=== PATIENT | male | born 1950 | race American Indian/Alaskan Native ===

== ENCOUNTER 2021-07-01 08:40 | Inpatient (IN) | payer BC, MEDICARE ==
[2021-07-01 09:56] LABS: Basophils % (Auto) 0.7 % (0.0-1.8); Eosinophils % (Auto) 0.1 % (0.0-4.3); Hematocrit 44.2 % (35.5-45.6); Hemoglobin 14.9 gm/dl (11.8-15.2); Lymphocytes # (Auto) 1.4 K/mm3 (1.2-5.4); Lymphocytes % (Auto) 21.3 % (13.4-35.0); Mean Corpuscular HGB Conc 34 % (32-34); Mean Corpuscular Volume 100 fl (84-94); Monocytes # (Auto) 0.6 K/mm3 (0.0-0.8); Monocytes % (Auto) 9.7 % (0.0-7.3); Platelet Count 113 K/mm3 (140-440); Red Blood Count 4.43 M/mm3 (3.65-5.03); Red Cell Distribution Width 14.9 % (13.2-15.2)
[2021-07-01 10:02] LABS: Blood Urea Nitrogen 3 mg/dL (9-20); Calcium 9.3 mg/dL (8.4-10.2); Hemolysis Index 14
[2021-07-01 10:03] LABS: BUN/Creatinine Ratio 4
[2021-07-01 10:17] LABS: INR 1.15 (0.87-1.13)
--- NOTE | 2021-07-01 12:06 | Emergency Department Report ---
ED General Adult HPI - General Chief complaint: Sore Throat Stated complaint: THROAT CLOSED CAN'T SWOLLOW Time Seen by Provider: 07/01/21 09:05 Source: patient Mode of arrival: Ambulatory Limitations: No Limitations - History of Present Illness Initial comments: 70-year-old male with a past medical history of recurrent esophageal dilatation procedures, hypertension, and prostate cancer diagnosed 2 years ago (untreated) presents to the hospital complaining of inability to swallow since 3 PM last night. Patient has a history of same in the past requiring esophageal dilatations. Last dilation was approximately 2 years ago. Patient states he is unable to swallow liquids at this time without them getting stuck in his chest and coming up. Patient has been noncompliant with his blood pressure medications x2 weeks because he ran out. He has an appointment scheduled for new PMD coming up. Patient denies abdominal pain. Severity scale (0 -10): 0 - Related Data Allergies Allergy/AdvReac Type Severity Reaction Status Date / Time No Known Allergies Allergy Unverified 07/01/21 08:43 ED Review of Systems ROS: Stated complaint: THROAT CLOSED CAN'T SWOLLOW Other details as noted in HPI Comment: All other systems reviewed and negative ED Past Medical Hx - Past Medical History Hx Hypertension: Yes Additional medical history: POSTRATE CANCER - Surgical History Hx Pacemaker: Yes - Social History Smoking Status: Never Smoker ED Physical Exam - General Limitations: No Limitations - Other Other exam information: General: No acute distress Head: Atraumatic Eyes: normal appearance ENT: Moist mucous membranes Neck: Normal appearance, no midline tenderness Chest: Clear to auscultation bilaterally CV: Regular rate and rhythm Abdomen: Soft, normal bowel sounds, nontender, nondistended, no rebound or guarding Back: Normal inspection Extremity: Normal inspection, full range of motion Neuro: Alert O x 3, no facial asymmetry, speech clear, no gross motor sensory deficit Psych: Appropriate behavior Skin: No rash ED Course Vital Signs 07/01/21 07/01/21 07/01/21 08:50 08:57 08:58 Temperature 98.5 F Pulse Rate 108 H Respiratory 20 Rate Blood Pressure Blood Pressure 161/107 [Right] O2 Sat by Pulse 97 98 98 Oximetry 07/01/21 07/01/21 07/01/21 09:00 09:15 09:31 Temperature Pulse Rate 104 H 105 H 101 H Respiratory 26 H 25 H 23 Rate Blood Pressure 201/114 192/111 192/111 Blood Pressure [Right] O2 Sat by Pulse 97 98 99 Oximetry 07/01/21 07/01/21 07/01/21 09:45 10:00 10:15 Temperature Pulse Rate 104 H 106 H 85 Respiratory 24 25 H 23 Rate Blood Pressure 192/111 176/96 Blood Pressure [Right] O2 Sat by Pulse 99 99 100 Oximetry 07/01/21 07/01/21 07/01/21 10:31 10:45 11:01 Temperature Pulse Rate Respiratory Rate Blood Pressure 201/111 174/111 184/100 Blood Pressure [Right] O2 Sat by Pulse 98 96 98 Oximetry 07/01/21 07/01/21 07/01/21 12:06 12:15 12:31 Temperature Pulse Rate 79 84 Respiratory 25 H 22 Rate Blood Pressure 219/139 182/95 184/99 Blood Pressure [Right] O2 Sat by Pulse 100 95 96 Oximetry - Consultations Consultation #1: 07/01/21 12:38 case d/w Dr Kilpatrick, will consult with anticipated endoscopy. ED Medical Decision Making - Lab Data Result diagrams: 07/01/21 09:29 07/01/21 09:29 Lab Results 07/01/21 07/01/21 07/01/21 Range/Units 09:29 09:29 09:29 WBC 6.7 (4.5-11.0) K/mm3 RBC 4.43 (3.65-5.03) M/mm3 Hgb 14.9 (11.8-15.2) gm/dl Hct 44.2 (35.5-45.6) % MCV 100 H (84-94) fl MCH 34 H (28-32) pg MCHC 34 (32-34) % RDW 14.9 (13.2-15.2) % Plt Count 113 L (140-440) K/mm3 Lymph % (Auto) 21.3 (13.4-35.0) % [place] % (Auto) 9.7 H (0.0-7.3) % Eos % (Auto) 0.1 (0.0-4.3) % Baso % (Auto) 0.7 (0.0-1.8) % Lymph # (Auto) 1.4 (1.2-5.4) K/mm3 [place] # (Auto) 0.6 (0.0-0.8) K/mm3 Eos # (Auto) 0.0 (0.0-0.4) K/mm3 Baso # (Auto) 0.0 (0.0-0.1) K/mm3 Seg Neutrophils % 68.2 (40.0-70.0) % Seg Neutrophils # 4.6 (1.8-7.7) K/mm3 PT 15.9 H (12.2-14.9) Sec. INR 1.15 H (0.87-1.13) APTT 34.0 (24.2-36.6) Sec. Sodium 136 L (137-145) mmol/L Potassium 3.7 (3.6-5.0) mmol/L Chloride 94.8 L (98-107) mmol/L Carbon Dioxide 24 (22-30) mmol/L Anion Gap 21 mmol/L BUN 3 L (9-20) mg/dL Creatinine 0.7 L (0.8-1.3) mg/dL Estimated GFR > 60 ml/min BUN/Creatinine Ratio 4 % Glucose 148 H (75-100) mg/dL Calcium 9.3 (8.4-10.2) mg/dL - Medical Decision Making 70-year-old male presents to the hospital hypertension and complaints of inability to swallow liquids. Patient is able to tolerate his secretions however, he was provided a trial of ordered applesauce and complain of a sensation that it was stuck in his chest and subsequently vomited it up. Patient received IV labetalol for asymptomatic hypertension. Case discussed with GI on-call Dr. Kilpatrick with plan for possible endoscopy on Saturday Critical Care Time: No Critical care attestation.: If time is entered above; I have spent that time in minutes in the direct care of this critically ill patient, excluding procedure time. ED Disposition Clinical Impression: Difficulty swallowing liquids, Uncontrolled hypertension, Noncompliance with medication regimen Disposition: ADMITTED INPATIENT Is pt being admited?: Yes Condition: Stable Instructions: Hypertension (ED) Time of Disposition: 12:39 (DR Huddleston/hospitalist)
--- NOTE | 2021-07-01 14:01 | Gastroenterology Consultation ---
History of Present Illness - Reason for Consult Consult date: 07/01/21 dysphagia Requesting physician: JUAN SERRANO - History of Present Illness The patient is a 70 yo aam who presents with dysphagia since yesterday. pt with h/o chronic gerd, not on ppi recently, h/o dysphagia and esophageal strictures in the past requiring dilatation (last 2-3 years ago per pt). he was doing well until dysphagia sx's yesterday afternoon. he is able to keep his secretions down and tolerated sip of water at time of exam. however was unable to keep down soft substance in ER this morning. he feels liquids are getting stuck in chest. denies abd pain. of note, very hypertensive in ER, has not been taking BP meds as he ran out of meds 2 weeks ago. Past History Past Medical History: hypertension, other (prostate cancer) Social history: no significant social history Family history: no significant family history Medications and Allergies Allergies Allergy/AdvReac Type Severity Reaction Status Date / Time No Known Allergies Allergy Unverified 07/01/21 08:43 Active Meds: Reviewed/updated patient's home and current medications Review of Systems - Review of Systems All systems: negative (per HPI) Exam - Constitutional Vital Signs: Temp Pulse Resp BP Pulse Ox 98.5 F 84 22 184/99 96 07/01/21 08:50 07/01/21 12:31 07/01/21 12:31 07/01/21 12:31 07/01/21 12:31 General appearance: no acute distress - EENT Eyes: PERRL, EOM intact ENT: hearing intact - Neck Neck: supple - Respiratory Respiratory effort: normal Respiratory: bilateral: CTA - Cardiovascular Rhythm: regular Heart Sounds: Present: S1 & S2 - Gastrointestinal General gastrointestinal: Present: soft, non-tender, non-distended - Neurologic Neurological: alert and oriented x3 - Psychiatric Psychiatric: appropriate mood/affect - Labs CBC & Chem 7: 07/01/21 09:29 07/01/21 09:29 Lab Results: Laboratory Results - last 24 hr 07/01/21 07/01/21 07/01/21 09:29 09:29 09:29 WBC 6.7 RBC 4.43 Hgb 14.9 Hct 44.2 MCV 100 H MCH 34 H MCHC 34 RDW 14.9 Plt Count 113 L Lymph % (Auto) 21.3 [place] % (Auto) 9.7 H Eos % (Auto) 0.1 Baso % (Auto) 0.7 Lymph # (Auto) 1.4 [place] # (Auto) 0.6 Eos # (Auto) 0.0 Baso # (Auto) 0.0 Seg Neutrophils % 68.2 Seg Neutrophils # 4.6 PT 15.9 H INR 1.15 H APTT 34.0 Sodium 136 L Potassium 3.7 Chloride 94.8 L Carbon Dioxide 24 Anion Gap 21 BUN 3 L Creatinine 0.7 L Estimated GFR > 60 BUN/Creatinine Ratio 4 Glucose 148 H Calcium 9.3 Assessment and Plan 1. Dysphagia - history of esophageal stricture in the past. able to keep secretions and clears down at bedside so low suspicion for complete obstruction, but will plan egd tomorrow. keep NPO except for sips of clears.
--- NOTE | 2021-07-01 14:32 | History and Physical Report ---
History of Present Illness Chief complaint: I cannot swallow and it feels like something is stuck in my chest History of present illness: 70 YO Male with HTN, CaP, GERD, Dysphagia S/P Esophageal Dilitation, medication noncompliance presents to ED for evaluation. Patient reports I cannot swallow and I feel like something is stuck in my chest". Patient states that he had experienced inability to swallow solids which has gotten progressively worse and the patient states that he is now unable to swallow liquids at this time. Patient transported to [facility] via private vehicle for further care and evaluation of the aforementioned symptoms. Patient seen and evaluated in the emergency department. All lab and imaging studies reviewed. Patient found to have dysphagia and inability to tolerate oral intake, accelerated malngnant hypertension due to inability to take oral medication. Patient admitted to medical floor and initiated on IV fluid resuscitation therapy, and IV antihypertensive therapy. Patient denies fever, chills, chest pain, palpitation, productive cough, skin rash, recent contact, known exposure to COVID-19. GI team consulted in ED. No prior admission for review. No medication listed at time of admission for reconciliation. Advanced care planning conducted in ED. Past History Past Medical History: hypertension, other (prostate cancer) Past Surgical History: Other (Esophageal dilatation) Social history: . denies: smoking, alcohol abuse Family history: no significant family history Medications and Allergies Allergies Allergy/AdvReac Type Severity Reaction Status Date / Time No Known Allergies Allergy Unverified 07/01/21 08:43 Review of Systems Constitutional: weight loss, poor appetite, no weight gain, no fever Ears, nose, mouth and throat: no ear pain, no tinnitis, no nose pain, no nasal congestion Cardiovascular: no chest pain, no palpitations, no rapid/irregular heart beat, no edema Respiratory: no cough, no hemoptysis, no dyspnea on exertion Gastrointestinal: no abdominal pain, no nausea, no diarrhea, no constipation, no change in bowel habits Genitourinary Male: no hematuria, no flank pain, no discharge, no urinary frequency, no urinary hesitancy Rectal: no pain, no incontinence, no bleeding Musculoskeletal: no neck stiffness, no neck pain, no shooting arm pain, no low back pain Integumentary: no rash, no pruritis, no wounds Neurological: no head injury, no parathesias, no tingling, no syncope, no tremors Psychiatric: no anxiety, no change in sleep habits, no insomnia, no change in appetite, no suicidal ideation Endocrine: no cold intolerance, no polyphagia, no polydipsia, no nocturia Hematologic/Lymphatic: no easy bruising, no easy bleeding Exam - Constitutional Vitals: Temp Pulse Resp BP Pulse Ox 98.5 F 90 21 184/102 97 07/01/21 08:50 07/01/21 14:15 07/01/21 14:15 07/01/21 14:15 07/01/21 14:15 General appearance: Present: mild distress - EENT Eyes: Present: PERRL ENT: hearing intact, clear oral mucosa - Neck Neck: Present: supple, normal ROM - Respiratory Respiratory effort: normal Respiratory: bilateral: CTA - Cardiovascular Heart Sounds: Present: S1 & S2. Absent: rub, click - Extremities Extremities: pulses symmetrical, No edema Peripheral Pulses: within normal limits - Abdominal General gastrointestinal: Present: soft, non-tender, non-distended, normal bowel sounds Male genitourinary: Present: normal - Integumentary Integumentary: Present: clear, warm, dry - Musculoskeletal Musculoskeletal: gait normal, strength equal bilaterally - Psychiatric Psychiatric: appropriate mood/affect, intact judgment & insight - Neurologic Neurologic: CNII-XII intact, moves all extremities Results - Labs CBC & Chem 7: 07/01/21 09:29 07/01/21 09:29 Labs: Abnormal lab results 07/01/21 07/01/21 07/01/21 Range/Units 09:29 09:29 09:29 MCV 100 H (84-94) fl MCH 34 H (28-32) pg Plt Count 113 L (140-440) K/mm3 [place] % (Auto) 9.7 H (0.0-7.3) % PT 15.9 H (12.2-14.9) Sec. INR 1.15 H (0.87-1.13) Sodium 136 L (137-145) mmol/L Chloride 94.8 L (98-107) mmol/L BUN 3 L (9-20) mg/dL Creatinine 0.7 L (0.8-1.3) mg/dL Glucose 148 H (75-100) mg/dL Assessment and Plan - Patient Problems (1) Dysphagia, oropharyngeal phase Current Visit: Yes Status: Acute Plan to address problem: GI team consulted. IV fluid resuscitation therapy, bowel rest. Further care and evaluation as per GI team. (2) Accelerated hypertension Current Visit: Yes Status: Acute Plan to address problem: Monitor blood pressure every shift, continue medical management, hydralazine 10 mg IV every 6 hours as needed for systolic blood pressure greater than or equal 155 mmHg. (3) Prostate cancer Current Visit: Yes Status: Acute Plan to address problem: Supportive care, outpatient urology follow-up. (4) GERD (gastroesophageal reflux disease) Current Visit: Yes Status: Acute Qualifiers: Esophagitis presence: esophagitis presence not specified Qualified Code(s): K21.9 - Gastro-esophageal reflux disease without esophagitis Plan to address problem: PPI therapy, GI team consulted. Supportive care. (5) DVT prophylaxis Current Visit: Yes Status: Acute Plan to address problem: SCD to bilateral lower extremities while in bed (6) Advance care planning Current Visit: Yes Status: Acute Plan to address problem: Disease education conducted, care plan discussed, diagnoses discussed, prognosis discussed, patient is full code. Patient acknowledges understanding and agreement with care plan, +30 minutes.
[2021-07-01] MEDS ORDERED: HYDROmorphone 1 MG/1 ML INJ IV PRN (14:34)
[2021-07-01] MEDS ORDERED: ONDANSETRON 4 MG/2 ML INJ IV PRN (14:34)
[2021-07-01] MEDS ORDERED: ACETAMINOPHEN 325 MG TAB PO PRN (14:34)
[2021-07-01] MEDS ORDERED: ALBUTEROL 2.5 MG/3 ML NEBU IH PRN (14:34)
[2021-07-01] MEDS ORDERED: hydrALAZINE 20 MG/1 ML INJ IV ONE (19:45)
[2021-07-01] MEDS ORDERED: PNEUMOCOCCAL 23 Valent 0.5 ML VIAL IM ONE (21:21)
[2021-07-02 05:56] LABS: Basophils % (Auto) 0.6 % (0.0-1.8); Eosinophils # (Auto) 0.1 K/mm3 (0.0-0.4); Eosinophils % (Auto) 1.8 % (0.0-4.3); Hematocrit 40.8 % (35.5-45.6); Hemoglobin 13.8 gm/dl (11.8-15.2); Lymphocytes # (Auto) 1.9 K/mm3 (1.2-5.4); Lymphocytes % (Auto) 27.8 % (13.4-35.0); Mean Corpuscular HGB Conc 34 % (32-34); Mean Corpuscular Volume 101 fl (84-94); Red Blood Count 4.04 M/mm3 (3.65-5.03); Red Cell Distribution Width 14.9 % (13.2-15.2)
[2021-07-02 05:59] LABS: Platelet Count 81 K/mm3 (140-440)
--- NOTE | 2021-07-02 09:33 | Anesthesia Consultation ---
Anesthesia Consult and Med Hx Date of service: 07/02/21 - Airway Anesthetic Teeth Evaluation: Poor (evidence of significant tooth decay w/ multiple missing teeth; denies loose teeth), Caps (#8) ROM Head & Neck: Adequate Mental/Hyoid Distance: Adequate Mallampati Class: Class III Intubation Access Assessment: Possibly Difficult - Pre-Operative Health Status ASA Pre-Surgery Classification: ASA3 Proposed Anesthetic Plan: MAC - Pulmonary Hx Smoking: No Hx Asthma: Yes (albuterol prn; last use 2 wks ago) Hx Respiratory Symptoms: No - Cardiovascular System Hx Hypertension: Yes Hx Heart Attack/AMI: No Hx Percutaneous Transluminal Coronary Angioplasty (PTCA): No Hx Pacemaker: Yes (placed <1yr ago, indication unclear) Hx Internal Defibrillator: No - Central Nervous System CVA: No - Gastrointestinal Hx Gastroesophageal Reflux Disease: Yes (dysphagia w/ history esophageal dilatations) - Endocrine Hx Renal Disease: No Hx Liver Disease: No Hx Insulin Dependent Diabetes: No Hx Non-Insulin Dependent Diabetes: No Hx Thyroid Disease: No - Hematic Hx Anemia: No (thrombocytopenia) - Other Systems Hx Cancer: Yes (hx prostate ca) Hx Obesity: No - Additional Comments Anesthesia Medical History Comments: No hx anesthetic complications.
--- NOTE | 2021-07-02 09:34 | Anesthesia Day of Surgery ---
Anesthesia Day of Surgery - Day of Surgery Patient Examined: Yes Patient H&P Reviewed: Yes Patient is NPO: Yes
[2021-07-02] MEDS ORDERED: SODIUM CHLORIDE 0.9% 1000 ML 1,000 ML ONE (09:46)
[2021-07-02] MEDS ORDERED: propofoL 200 MG/20 ML VIAL IV ONE (09:48)
--- NOTE | 2021-07-02 10:10 | Operative Report ---
Operative Report Operative Report: Esophagogastroduodenoscopy Procedure Note Date of procedure: 07/02/2021 Endoscopist: Ry Kilpatrick Pre-op diagnosis/indication: Dysphagia Post-op diagnosis: Severe stricture in the distal esophagus MEDICATIONS: MAC COMPLICATIONS: No immediate complications ESTIMATED BLOOD LOSS: None DESCRIPTION OF PROCEDURE: After consent was obtained, the patient was placed in the left lateral decubitis position. The olympus endoscope was inserted into the patient's mouth under direct vision and advanced to the 2nd portion of the duodenum without difficulty. The patient tolerated the procedure well. The views of the mucosa were fair. The patient's vital signs were monitored continuously throughout the procedure. FINDINGS: There was a severe, circumferential benign appearing stricture in the distal esophagus. This was traversed with the endoscopic with moderate resistance. There was appropriate mucosal disruption and improvement in the stricture with the endoscope. The remainder of the stomach and duodenum appeared normal. IMPRESSION: 1. Severe circumferential stricture (benign appearing) in the distal esophagus s/p autodilatation from the endoscope. RECOMMENDATIONS: -patient needs to be on PPI BID dosing, and recommend carafate QID x 1 month. needs to remain on clears and soft diet (NO SOLIDS) upon discharge until repeat egd with further dilatation can be performed in outpatient setting (recommend to be done in 4 weeks after adequate anti-acid treatment). -okay to discharge from GI stand point. -will sign off, please call as needed.
--- NOTE | 2021-07-02 10:30 | Post Anesthesia Evaluation ---
- Post Anesthesia Evaluation Patient Participated: Yes Airway Patent: Yes Stable Respiratory Function: Yes Nausea/Vomiting: No Temp > 96.8F: Yes Pain Manageable: Yes Adequeate Hydration: Yes Anesthesia Complications: No
[2021-07-02] MEDS: oxyCODONE /ACETAMINOPHEN 5-325MG TAB PO PRN (11:04)
[2021-07-02] MEDS: hydrALAZINE 20 MG/1 ML INJ IV PRN (14:24)
--- NOTE | 2021-07-02 14:51 | Progress Note ---
Assessment and Plan - Patient Problems (1) Dysphagia, oropharyngeal phase Current Visit: Yes Status: Acute Plan to address problem: Per GI There was a severe, circumferential benign appearing stricture in the distal esophagus. This was traversed with the endoscopic with moderate resistance. There was appropriate mucosal disruption and improvement in the stricture with the endoscope. The remainder of the stomach and duodenum appeared normal. IMPRESSION: 1. Severe circumferential stricture (benign appearing) in the distal esophagus s/p autodilatation from the endoscope. RECOMMENDATIONS: -patient needs to be on PPI BID dosing, and recommend carafate QID x 1 month. needs to remain on clears and soft diet (NO SOLIDS) upon discharge until repeat egd with further dilatation can be performed in outpatient setting (recommend to be done in 4 weeks after adequate anti-acid treatment). -okay to discharge from GI stand point. (2) Accelerated hypertension Current Visit: Yes Status: Acute Plan to address problem: Improved Adjust antihypertensives (3) Prostate cancer Current Visit: Yes Status: Acute Plan to address problem: Supportive care, outpatient urology follow-up. (4) GERD (gastroesophageal reflux disease) Current Visit: Yes Status: Acute Qualifiers: Esophagitis presence: esophagitis presence not specified Qualified Code(s): K21.9 - Gastro-esophageal reflux disease without esophagitis Plan to address problem: PPI therapy, GI consult and procedure appreciated (5) DVT prophylaxis Current Visit: Yes Status: Acute Plan to address problem: SCD to bilateral lower extremities while in bed (6) Advance care planning Current Visit: Yes Status: Acute Plan to address problem: Disease education conducted, care plan discussed, diagnoses discussed, prognosis discussed, patient is full code. Patient acknowledges understanding and agreement with care plan, +30 minutes. Subjective Date of service: 07/02/21 Principal diagnosis: Dysphagia, esophageal stricture Interval history: 70 YO Male with HTN, CaP, GERD, Dysphagia S/P Esophageal Dilitation, medication noncompliance presents to ED for evaluation. Patient reports I cannot swallow and I feel like something is stuck in my chest". Patient states that he had experienced inability to swallow solids which has gotten progressively worse and the patient states that he is now unable to swallow liquids at this time. Patient transported to [facility] via private vehicle for further care and evaluation of the aforementioned symptoms. Patient seen and evaluated in the emergency department. All lab and imaging studies reviewed. Patient found to have dysphagia and inability to tolerate oral intake, accelerated malngnant hypertension due to inability to take oral medication. Patient admitted to medical floor and initiated on IV fluid resuscitation therapy, and IV antihypertensive therapy. Patient denies fever, chills, chest pain, palpitation, productive cough, skin rash, recent contact, known exposure to COVID-19. GI team consulted in ED. No prior admission for review. No medication listed at time of admission for reconciliation. Advanced care planning conducted in ED. 07/02/2021 EGD done today History of esophageal dilation of the stricture done by passing the endoscope through the stricture Plan for EGD after 4 weeks Patient to take PPIs and Carafate on a regular basis Able to swallow clear liquids Objective - Constitutional Vitals: Vital Signs - 12hr 07/02/21 07/02/21 07/02/21 04:34 06:16 09:22 Temperature 98.5 F 98.2 F Pulse Rate 59 L 63 Respiratory 20 15 Rate Blood Pressure 170/93 169/96 O2 Sat by Pulse 98 96 97 Oximetry 07/02/21 07/02/21 07/02/21 10:06 10:11 10:16 Temperature 98.1 F Pulse Rate 86 80 80 Respiratory 21 24 19 Rate Blood Pressure 125/73 116/74 109/64 O2 Sat by Pulse 100 100 100 Oximetry 07/02/21 07/02/21 07/02/21 10:26 10:36 11:40 Temperature 98.4 F Pulse Rate 67 60 75 Respiratory 20 18 22 Rate Blood Pressure 158/89 151/83 203/103 O2 Sat by Pulse 97 96 97 Oximetry 07/02/21 14:24 Temperature Pulse Rate Respiratory Rate Blood Pressure 165/82 O2 Sat by Pulse Oximetry General appearance: Present: no acute distress, well-nourished - EENT Eyes: PERRL, EOM intact ENT: hearing intact, clear oral mucosa Ears: bilateral: normal - Neck Neck: supple, normal ROM - Respiratory Respiratory effort: normal Respiratory: bilateral: CTA - Breasts Breasts: normal - Cardiovascular Heart rate: 78 Rhythm: regular Heart Sounds: Present: S1 & S2. Absent: gallop, rub Extremities: pulses intact, No edema, normal color, Full ROM - Gastrointestinal General gastrointestinal: Present: soft, non-tender, non-distended, normal bowel sounds - Genitourinary Male genitourinary: normal - Integumentary Integumentary: clear, warm, dry - Musculoskeletal Musculoskeletal: 1, strength equal bilaterally - Neurologic Neurologic: moves all extremities - Psychiatric Psychiatric: memory intact, appropriate mood/affect, intact judgment & insight - Allied health notes Allied health notes reviewed: nursing, case management - Labs CBC & Chem 7: 07/02/21 05:20 07/01/21 09:29 Labs: Abnormal lab results 07/02/21 Range/Units 05:20 MCV 101 H (84-94) fl MCH 34 H (28-32) pg Plt Count 81 L (140-440) K/mm3 [place] % (Auto) 15.0 H (0.0-7.3) % [place] # (Auto) 1.0 H (0.0-0.8) K/mm3
[2021-07-03] MEDS: hydrALAZINE 20 MG/1 ML INJ IV PRN (05:24)
[2021-07-03 06:22] LABS: Blood Urea Nitrogen 5 mg/dL (9-20); Calcium 8.1 mg/dL (8.4-10.2); Hemolysis Index 8
[2021-07-03 06:27] LABS: BUN/Creatinine Ratio 7
--- NOTE | 2021-07-03 09:05 | Gastroenterology Progress Note ---
Assessment and Plan 1. Severe esophageal stricture - s/p auto-dilatation with endoscope. no food impaction. tolerating clears. needs to remain on clears/soft diet following discharge. NO solids until repeat endoscopy can be performed with further dilatation. discharge on PPI BID dosing. can supplement nutrition with boost/ensure. f/u with primary gi in 2 week. will sign off, please call as needed or with questions. Subjective Date of service: 07/03/21 Principal diagnosis: Dysphagia, esophageal stricture Interval history: pt reports improvement in tolerating liquids since endoscopy. no n/v or abd pain Objective - Constitutional Vitals: Temp Pulse Resp BP Pulse Ox 98.3 F 77 20 157/90 99 07/03/21 04:27 07/03/21 05:24 07/03/21 04:27 07/03/21 05:24 07/03/21 08:30 General appearance: no acute distress - Respiratory Respiratory effort: normal Respiratory: bilateral: CTA - Cardiovascular Rhythm: regular Heart Sounds: Present: S1 & S2 - Gastrointestinal General gastrointestinal: Present: soft, non-tender - Labs CBC & Chem 7: 07/02/21 05:20 07/03/21 05:09 Labs: Laboratory Results - last 24 hr 07/03/21 05:09 Sodium 140 Potassium 3.0 L Chloride 98.8 Carbon Dioxide 25 Anion Gap 19 BUN 5 L Creatinine 0.7 L Estimated GFR > 60 BUN/Creatinine Ratio 7 Glucose 137 H Calcium 8.1 L
[2021-07-03] MEDS: POTASSIUM CHLORIDE ER 20 MEQ TAB PO SCH ×2 (10:49→14:22)
--- NOTE | 2021-07-03 12:36 | Progress Note ---
Assessment and Plan Assessment and plan: NO solids until repeat endoscopy can be performed with further dilatation. --Severe hypokalemia: K 3.0 Current Visit: Yes Status: Acute Replenished with oral KCl, Closely monitor electrolytes patient also has hypomagnesemia --Hypomagnesemia: Mg 1.4 Current Visit: Yes Status: Acute Replenished with 3 g of mag self Monitor electrolytes --Dysphagia, esophageal stricture Current Visit: Yes Status: Acute GI evaluated the patient, recommended Severe circumferential benign-appearing esophageal stricture - s/p auto-dilatation with endoscope 07/03/2021. no food impaction. Started clears Patient needs to remain on clears/soft diet following discharge. NO solids until repeat endoscopy can be performed with further dilatation. discharge on PPI BID dosing. can supplement nutrition with boost/ensure. f/u with primary gi in 2 week. --Accelerated hypertension Current Visit: Yes Status: Acute Improved, Adjust antihypertensives -- h/o Prostate cancer Current Visit: Yes Status: Acute Supportive care, outpatient urology follow-up. --GERD (gastroesophageal reflux disease) Current Visit: Yes Status: Acute PPI therapy, follow GI per schedule --DVT prophylaxis Current Visit: Yes Status: Acute SCD to bilateral lower extremities while in bed --Advance care planning Current Visit: Yes Status: Acute Disease education conducted, care plan discussed, diagnoses discussed, prognosis discussed, patient is full code. Patient acknowledges understanding and agreement with care plan, +30 minutes. --Full code status: --Discharge planning; possible discharge home with home health tomorrow if stable and cleared by GI We will closely monitor the patient and adjust management as needed History Interval history: I have seen and examined the patient at the bedside this morning Patient's chart and medications reviewed. Patient was admitted with dysphagia, evaluated by GI, found to have circumferential stricture Underwent EGD, status post dilatation, advised clear liquid diet and nutrition supplements. Patient feels slightly better Tolerating clear liquids Hospitalist Physical - Constitutional Vitals: Temp Pulse Resp BP Pulse Ox 98.3 F 77 20 157/90 99 07/03/21 04:27 07/03/21 05:24 07/03/21 04:27 07/03/21 05:24 07/03/21 08:30 General appearance: Present: no acute distress, well-nourished - EENT Eyes: Present: PERRL, EOM intact - Neck Neck: Present: supple, normal ROM - Respiratory Respiratory effort: normal Respiratory: bilateral: diminished, negative: rales, rhonchi, wheezing - Cardiovascular Rhythm: regular Heart Sounds: Present: S1 & S2 - Extremities Extremities: no ischemia, No edema - Abdominal General gastrointestinal: soft, non-tender, non-distended, normal bowel sounds - Integumentary Integumentary: Present: clear, warm - Psychiatric Psychiatric: appropriate mood/affect, cooperative - Neurologic Neurologic: CNII-XII intact, moves all extremities Results - Labs CBC & Chem 7: 07/02/21 05:20 07/03/21 05:09 Labs: Laboratory Last Values WBC 6.8 K/mm3 (4.5-11.0) 07/02/21 05:20 RBC 4.04 M/mm3 (3.65-5.03) 07/02/21 05:20 Hgb 13.8 gm/dl (11.8-15.2) 07/02/21 05:20 Hct 40.8 % (35.5-45.6) 07/02/21 05:20 MCV 101 fl (84-94) H 07/02/21 05:20 MCH 34 pg (28-32) H 07/02/21 05:20 MCHC 34 % (32-34) 07/02/21 05:20 RDW 14.9 % (13.2-15.2) 07/02/21 05:20 Plt Count 81 K/mm3 (140-440) L 07/02/21 05:20 Lymph % (Auto) 27.8 % (13.4-35.0) 07/02/21 05:20 [place] % (Auto) 15.0 % (0.0-7.3) H 07/02/21 05:20 Eos % (Auto) 1.8 % (0.0-4.3) 07/02/21 05:20 Baso % (Auto) 0.6 % (0.0-1.8) 07/02/21 05:20 Lymph # (Auto) 1.9 K/mm3 (1.2-5.4) 07/02/21 05:20 [place] # (Auto) 1.0 K/mm3 (0.0-0.8) H 07/02/21 05:20 Eos # (Auto) 0.1 K/mm3 (0.0-0.4) 07/02/21 05:20 Baso # (Auto) 0.0 K/mm3 (0.0-0.1) 07/02/21 05:20 Seg Neutrophils % 54.8 % (40.0-70.0) 07/02/21 05:20 Seg Neutrophils # 3.8 K/mm3 (1.8-7.7) 07/02/21 05:20 PT 15.9 Sec. (12.2-14.9) H 07/01/21 09:29 INR 1.15 (0.87-1.13) H 07/01/21 09:29 APTT 34.0 Sec. (24.2-36.6) 07/01/21 09:29 Sodium 140 mmol/L (137-145) 07/03/21 05:09 Potassium 3.0 mmol/L (3.6-5.0) L 07/03/21 05:09 Chloride 98.8 mmol/L (98-107) 07/03/21 05:09 Carbon Dioxide 25 mmol/L (22-30) 07/03/21 05:09 Anion Gap 19 mmol/L 07/03/21 05:09 BUN 5 mg/dL (9-20) L 07/03/21 05:09 Creatinine 0.7 mg/dL (0.8-1.3) L 07/03/21 05:09 Estimated GFR > 60 ml/min 07/03/21 05:09 BUN/Creatinine Ratio 7 % 07/03/21 05:09 Glucose 137 mg/dL (75-100) H 07/03/21 05:09 Calcium 8.1 mg/dL (8.4-10.2) L 07/03/21 05:09 Magnesium 1.40 mg/dL (1.7-2.3) L 07/03/21 09:34 Duncan/IV: Voiding Method Toilet Active Medications - Current Medications Current Medications: Generic Name Dose Route Start Last Admin Trade Name Freq PRN Reason Stop Dose Admin Acetaminophen 650 mg 07/01/21 14:34 Acetaminophen 325 Mg Tab PO Q4H PRN Pain MILD(1-3)/Fever >100.5/ASCENCIO Albuterol 2.5 mg 07/01/21 14:34 Albuterol 2.5 Mg/3 Ml Nebu IH Q4HRT PRN Shortness Of Breath Hydralazine HCl 10 mg 07/01/21 18:47 07/03/21 05:24 Hydralazine 20 Mg/1 Ml Inj IV 10 mg Q6HR PRN Administration Hypertension Hydromorphone HCl 0.5 mg 07/01/21 14:34 Hydromorphone 1 Mg/1 Ml Inj IV Q12H PRN Pain , Severe (7-10) Magnesium Sulfate 3 gm/ Sodium 106 mls @ 35.333 mls/hr 07/03/21 12:31 Chloride IV 07/03/21 15:30 ONCE ONE Ondansetron HCl 4 mg 07/01/21 14:34 Ondansetron 4 Mg/2 Ml Inj IV Q8H PRN Nausea And Vomiting Oxycodone/Acetaminophen 1 tab 07/01/21 14:34 07/02/21 11:04 Oxycodone /Acetaminophen 5-325mg Tab PO 1 tab Q6H PRN Administration Pain, Moderate (4-6) Potassium Chloride 40 meq 07/03/21 10:00 07/03/21 10:49 Potassium Chloride Er 20 Meq Tab PO 07/03/21 14:01 40 meq Q4H DINH Administration Sodium Chloride 10 ml 07/01/21 22:00 07/03/21 10:49 Sodium Chloride 0.9% 10 Ml Flush Syringe IV 10 ml BID DINH Administration Sodium Chloride 10 ml 07/01/21 14:34 Sodium Chloride 0.9% 10 Ml Flush Syringe IV PRN PRN LINE FLUSH
[2021-07-03] MEDS ORDERED: MAGNESIUM SULFATE 3 GM in SODIUM CHLORIDE 0.9% 100 ML IV ONE (13:30)
[2021-07-03] MEDS: oxyCODONE /ACETAMINOPHEN 5-325MG TAB PO PRN (21:21)
[2021-07-04 05:01] VITALS: BP 152/81
[2021-07-04 09:41] LABS: BUN/Creatinine Ratio 10; Blood Urea Nitrogen 8 mg/dL (9-20); Calcium 8.7 mg/dL (8.4-10.2); Hemolysis Index 34
[2021-07-04] MEDS ORDERED: PANTOPRAZOLE 40 MG INJ IV SCH (10:15)
--- NOTE | 2021-07-04 11:05 | Discharge Summary ---
Providers - Providers Date of Admission: 07/01/21 14:36 Date of discharge: 07/04/21 Attending physician: SHAYY DOBBS 07/01/21 12:32 Consult to Physician [CONS] Urgent Comment: Consulting Provider: JUDD BENAVIDEZ Physician Instructions: Reason For Exam: unable to swallow Primary care physician: ANIMAL ATTENDANT Hospitalization Reason for admission: Difficulty swallowing/dysphagia Condition: Stable Pertinent studies: Severe esophageal stricture - s/p auto-dilatation with endoscope. Procedures: Severe esophageal stricture - s/p auto-dilatation with endoscope. Hospital course: --Severe hypokalemia: K 3.0 Current Visit: Yes Status: Acute Replenished with oral KCl, Closely monitor electrolytes patient also has hypomagnesemia --Hypomagnesemia: Mg 1.4 Current Visit: Yes Status: Acute Replenished with 3 g of mag self Monitor electrolytes --Dysphagia, esophageal stricture Current Visit: Yes Status: Acute GI evaluated the patient, recommended Severe circumferential benign-appearing esophageal stricture - s/p auto-dilatation with endoscope 07/03/2021. no food impaction. Started clears Patient needs to remain on clears/soft diet following discharge. NO solids until repeat endoscopy can be performed with further dilatation. discharge on PPI BID dosing. can supplement nutrition with boost/ensure. f/u with primary gi in 2 week. --Accelerated hypertension Current Visit: Yes Status: Acute Improved, Adjust antihypertensives -- h/o Prostate cancer Current Visit: Yes Status: Acute Supportive care, outpatient urology follow-up. --GERD (gastroesophageal reflux disease) Current Visit: Yes Status: Acute PPI therapy, follow GI per schedule Disposition: 01 HOME / SELF CARE / HOMELESS Final Discharge Diagnosis (Prints w/discharge instructions): Dysphagia[EGD and palpation]. Esophageal stricture[EGD and dilation]. Accelerated hypertension; well controlled. GERD; Protonix. History of prostate cancer. Hypomagnesemia/resolved. Hypokalemia/resolved Time spent for discharge: 35 MIN Core Measure Documentation - Palliative Care Palliative Care/ Comfort Measures: Not Applicable - Core Measures Any of the following diagnoses?: none Exam - Constitutional Vitals: Temp Pulse Resp BP Pulse Ox 97.7 F 57 L 20 152/81 97 07/04/21 04:07 07/04/21 05:08 07/04/21 10:43 07/04/21 04:07 07/04/21 10:43 General appearance: Present: no acute distress, well-nourished - EENT Eyes: Present: PERRL, EOM intact - Neck Neck: Present: supple, normal ROM - Respiratory Respiratory effort: normal Respiratory: bilateral: diminished, negative: rales, rhonchi, wheezing - Cardiovascular Rhythm: regular Heart Sounds: Present: S1 & S2 - Extremities Extremities: no ischemia, No edema - Abdominal General gastrointestinal: Present: soft, non-tender, non-distended, normal bowel sounds - Integumentary Integumentary: Present: clear, warm - Musculoskeletal Musculoskeletal: strength equal bilaterally - Psychiatric Psychiatric: appropriate mood/affect, cooperative - Neurologic Neurologic: CNII-XII intact, moves all extremities Plan Activity: advance as tolerated Diet: other (Only clear liquids and soft diet, do not take solid diet) Additional Instructions: Continue only clear liquid diet and soft diet following discharge. NO SOLID FOOD UNTIL REPEAT ENDOSCOPY AND REPEAT DILATATION. Follow with your primary care physician in 1 week. and private GI in 2 weeks. If you have worsening symptoms contact MD or go to the nearest emergency room as needed Follow up with: PRIMARY CARE, [Primary Care Provider] - 3-5 Days JUDD BENAVIDEZ MD [Staff Physician] - 14 Days Prescriptions: Sucralfate [Carafate] 1 gm PO Q6HR 30 Days udc PANTOPRAZOLE SODIUM (nf) [Protonix GRANULES] 40 mg PO BID #60 packet
== END 2021-07-04 12:30 | disposition home or self-care (01) | DRG 392 ==
LOC: ED 08:40 → 3A 14:36
PROVIDERS: ADMIT Internal Medicine; ATTEND Internal Medicine
PROC: 0D758ZZ Dilation of Esophagus, Via Natural or Artificial Opening Endoscopic (ICD-10-PCS; principal; 2021-07-02)
DX: K22.2 Esophageal obstruction (principal); K21.9 Gastro-esophageal reflux disease without esophagitis; I10 Essential (primary) hypertension; C61 Malignant neoplasm of prostate; Z91.19 Patient's noncompliance with other medical treatment and regimen; R13.12 Dysphagia, oropharyngeal phase; E87.6 Hypokalemia; E83.42 Hypomagnesemia
CPT/HCPCS: 36415; 80048; 83735; 85025; 85610; 85730; 90732; 94760; G0378; J3490; J7120; Q0162; J0360; J2704; J3475; J7030